=== PATIENT | male | born 1955 | race Caucasian/White ===

== ENCOUNTER 2017-03-31 05:34 | Emergency (ER) | payer OTHER ==
[~2017-03-31] VITALS: Ht 165.1 cm; Wt 63.5 kg
[2017-03-31 06:56] VITALS: BP 0/0; Ht 165.1 cm; Wt 63.5 kg
== END 2017-03-31 09:43 | disposition expired ==
LOC: ED 05:34
DX: I46.9 Cardiac arrest, cause unspecified (principal); E03.9 Hypothyroidism, unspecified